=== PATIENT | female | born 1970 | race Caucasian/White ===

== ENCOUNTER 2022-10-04 13:40 | Outpatient (CLI) | payer BC | END 2022-10-04 13:41 | disposition home or self-care (01) | LOC: BICMRI 13:40 | PROVIDERS: ATTEND Internal Medicine | DX: M51.16 Intervertebral disc disorders with radiculopathy, lumbar region (principal) | CPT/HCPCS: 72148 ==

== ENCOUNTER 2022-11-21 13:45 | Outpatient (CLI) | payer BC | END 2022-11-21 13:46 | disposition home or self-care (01) | LOC: SCSRAD 13:45 | PROVIDERS: ATTEND Internal Medicine | DX: M79.641 Pain in right hand (principal); R59.0 Localized enlarged lymph nodes | CPT/HCPCS: 71046 ==